=== PATIENT | female | born 2000 | race Two or more races ===

== ENCOUNTER 2019-07-25 00:56 | Emergency (ER) | payer OTHER ==
--- NOTE | 2019-07-25 01:33 | ER Document Report ---
ED Psych Disorder / Suicide - General Chief Complaint: Suicidal Ideation Stated Complaint: SUICIDAL ATTEMPT Time Seen by Provider: 07/25/19 01:00 Notes: 19-year-old female with no past medical history presents to the emergency department with suicidal ideation. Patient states that she wanted to cut herself but did not go through with it. Patient was not very forthcoming when asked how she ended up here. She states that her did call 911. Patient denies any homicidal ideations. Patient does not feel threatened by her . Patient states that this is never happened to her before. Patient is a difficult historian. Denies any headache, fever, head injury neck pain, changes in vision/speech/mentation/hearing, URI, sore throat, chest pain, palpitations, syncope, cough, shortness of breath, wheeze, dyspnea, abdominal pain, nausea/vomiting/diarrhea, urinary retention, dysuria, hematuria, loss of control of bladder or bowel, numbness/tingling/saddle anesthesia, muscle paralysis/weakness, or rash. Past Medical History - Social History Smoking Status: Unknown if Ever Smoked Family History: None Patient has suicidal ideation: Yes Patient has homicidal ideation: No Review of Systems - Review of Systems Constitutional: See HPI EENT: No symptoms reported Cardiovascular: See HPI Respiratory: See HPI Gastrointestinal: See HPI Genitourinary: See HPI Female Genitourinary: No symptoms reported Musculoskeletal: No symptoms reported Skin: No symptoms reported Hematologic/Lymphatic: No symptoms reported Neurological/Psychological: No symptoms reported Physical Exam - Vital signs Vitals: Temp 98.7 F 07/25/19 01:12 - Notes Notes: PHYSICAL EXAMINATION: Reviewed vital signs and charting by RN GENERAL: Alert, interacts well. No acute distress. HEAD: Normocephalic, atraumatic. EYES: Pupils equal and round. Extraocular movements intact. ENT: Oral mucosa moist, tongue midline. NECK: Full range of motion. Trachea midline. LUNGS: Clear to auscultation bilaterally, no wheezes, rales, or rhonchi. No respiratory distress. HEART: Regular rate and rhythm. No murmur ABDOMEN: soft, non-tender. No distention. Bowel sounds present EXTREMITIES: Moves all 4 extremities spontaneously. No edema, No cyanosis. PSYCH: Patient is alert and orientated to person, place, time and circumstance. Mood is depressed with congruent affect. Patient with suicidal ideation and without homicidal ideation. Delusions are absent and behaviors congruent with a n intact reality based presentation i.e. organized and linear thought process. Eye contact is poor. Conversational speech is slow. Intellectual abilities appear to be within the average range. Attention and concentration are 4. Insight, judgment, impulse control are historically poor SKIN: Warm, dry, normal turgor. No rashes or lesions noted. Course - Re-evaluation Re-evalutation: 07/25/19 04:12 Patient presents with an SI. She is very tearful and withdrawn when I spoke with her. She said that she was thinking about cutting herself and her called 911 and brought her in. She is very hesitant to talk with me and give history. Work-up has been completed and she is cleared for evaluation by psychiatric services. - Vital Signs Vital signs: Temp Pulse Resp BP Pulse Ox 98.7 F 84 18 142/71 H 98 07/25/19 01:15 07/25/19 01:15 07/25/19 01:15 07/25/19 01:15 07/25/19 01:15 - Laboratory Result Diagrams: 07/25/19 01:21 07/25/19 01:21 Laboratory results interpreted by me: 07/25/19 07/25/19 07/25/19 01:21 01:21 03:20 WBC 11.1 H MCH 26.6 L RDW 15.0 H Ur Leukocyte Esterase SMALL H Urine Ascorbic Acid 20 H Salicylates < 1.0 L Acetaminophen < 10 L Discharge - Discharge Clinical Impression: Suicidal ideation Condition: Stable Disposition: OTHER
[2019-07-25 02:20] LABS: ALBUMIN 4.9 g/dL (3.5-5.0); ALKALINE PHOSPHATASE 92 U/L (38-126); ANION GAP 11 (5-19); ASPARTATE AMINO TRANSFERASE 23 U/L (14-36); BILIRUBIN,TOTAL 0.5 mg/dL (0.2-1.3); BLOOD UREA NITROGEN 9 mg/dL (7-20); CALCIUM 9.5 mg/dL (8.4-10.2); CARBON DIOXIDE 22 mmol/L (22-30); CHLORIDE 105 mmol/L (98-107); GLUCOSE 102 mg/dL (75-110); POTASSIUM 4.1 mmol/L (3.6-5.0)
[2019-07-25 02:21] LABS: ABSOLUTE BASOPHILS # (AUTO) 0.1 10^3/uL (0.0-0.2); ABSOLUTE EOSINOPHILS # (AUTO) 0.6 10^3/uL (0.0-0.6); ABSOLUTE LYMPHOCYTES (AUTO) 2.9 10^3/uL (0.5-4.7); ABSOLUTE MONOCYTES (AUTO) 0.6 10^3/uL (0.1-1.4); ABSOLUTE NEUT (AUTO) 6.9 10^3/uL (1.7-8.2); BASOPHILS % (AUTO) 0.7 % (0-2); EOSINOPHILS % (AUTO) 5.8 % (0-6); HEMATOCRIT 39.7 % (36.0-47.0); HEMOGLOBIN 12.9 g/dL (12.0-15.5); LYMPHOCYTES % (AUTO) 25.8 % (13-45); MEAN CORPUSCULAR HEMOGLOBIN 26.6 pg (27.0-33.4); MEAN CORPUSCULAR HGB CONC 32.6 g/dL (32.0-36.0); MEAN CORPUSCULAR VOLUME 82 fl (80-97); MONOCYTES % (AUTO) 5.6 % (3-13); PLATELET COUNT 396 10^3/uL (150-450); RED BLOOD COUNT 4.87 10^6/uL (3.72-5.28); SEGMENTED NEUTROPHILS % (AUTO) 62.1 % (42-78); TOTAL CELLS COUNTED % (AUTO) 100 %; WHITE BLOOD COUNT 11.1 10^3/uL (4.0-10.5)
[2019-07-25 02:30] LABS: ACETAMINOPHEN < 10 ug/mL (10-30); ALCOHOL < 10 mg/dL (NONE DETECTED); SALICYLATE < 1.0 mg/dL (2.0-20.0)
[2019-07-25 03:28] LABS: APPEARANCE,URINE SLIGHTLY-CLOUDY; BILIRUBIN,URINE NEGATIVE (NEGATIVE); COLOR,URINE YELLOW; GLUCOSE, URINE NEGATIVE (NEGATIVE); KETONES,URINE NEGATIVE (NEGATIVE); LEUKOCYTE ESTERASE,URINE SMALL (NEGATIVE); NITRITE,URINE NEGATIVE (NEGATIVE); PROTEIN,URINE NEGATIVE (NEGATIVE); URINE SPECIFIC GRAVITY 1.012; UROBILINOGEN,URINE NEGATIVE mg/dL (<2.0)
[2019-07-25 03:42] LABS: URINE AMPHETAMINES SCREEN NEGATIVE; URINE BARBITURATES SCREEN NEGATIVE; URINE BENZODIAZEPINES SCREEN NEGATIVE; URINE COCAINE SCREEN NEGATIVE; URINE METHADONE SCREEN NEGATIVE; URINE PHENCYCLIDINE SCREEN NEGATIVE
[2019-07-25 03:43] LABS: URINE MARIJUANA (THC) SCREEN UNCONFIRMED POSITIVE
[2019-07-25] MEDS ORDERED: OLANZAPINE 2.5 MG TABLET PO ONE (12:12)
[2019-07-25] MEDS ORDERED: BUSPIRONE HCL 10 MG TABLET PO ONE (12:13)
--- NOTE | 2019-07-25 12:47 | PSYCHOLOGICAL NOTE ---
Psych Note - Psych Note Date seen by psych provider: 07/25/19 Time seen by psych provider: 11:25 Psych Note: Patient is a 19 year old female who presents to ED with concerns for suicidal ideation and history of NSSI. Patient reports "I wanted to hurt myself." Patient states she was having thoughts of suicide but no intent or desire. Patient reports a history of NSSI since high school when she was forced to move to another school and "had no fr iends." Patient reports she generally only engages in self harm behavior without intent to commit suicide when she is angry and frustrated. Patient reports she was not afforded the opportunity to cultivate emotional language, and uses maladaptive coping when she is distressed because she does not know how to discuss her feelings. Patient states she knows she needs help but has not "been motivated enough in the past" to establish mental health services. Patient denies the need for inpatient psychiatric services. Patient verbalized insight as to her pattern of maladaptive coping, need for mental health services, and why her contacted EMS. Patient denies history of mental health. Patient denies prior inpatient psychiatric hospitalizations. Patient reports a previous suicidal ideation earlier this year when she ingested an unknown quantity and dosage of Benadryl after an argument with her . Patient reported she did not take enough to require medical attention. Patient is agreeable to engage in mental health services. Patient denies any concerns that maladaptive coping has negatively impacted her occupational functioning. 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 Behavioral health team coordinated with with plan of care at discharge. reported no concerns for safety and wellbeing at discharge. agreed to be responsible for medication management and administration, remove access to items in the home that can be used for purposes of suicide, observe for signs of increased emotional distress, and facilitate appointment with a mental health provider on Saturday. was provided psychoeducation on healthy communication techniques. Patient was alert and oriented to person, place, circumstance, and situation. Mood was engaged and cooperative with somewhat flat affect, mood was congruent and with full expression. She denied current suicidal / homicidal ideation, intent or plan. She denied current auditory /visual hallucinations and there was no evidence of delusional thought content. Thought processes were linear, rational, and organized. Conversational speech was within normal limits for rate, tone, and prosody. Eye contact was well maintained. Intellectual abilities were estimated within the average range. Attention and concentration was good, and insight, judgment, and impulse control was fair. Medication recommendation by consulting psychiatrist: 1. Add Zyprexa 2.5MG, twice a day for mood regulation 2. Add Buspar 5MG, daily Diagnosis: 1. Depression Therapeutic Intervention: Clinician utilized CBT techniques to teach thought stopping and grounding (to include breathing) exercises; Patient was provided interactive psychoeducation worksheets on self care, emotion labeling, and how to communication emotions with the use of "I statements;" Focus on health, wellness and good nutrition. Impression / Plan: Patient is cleared from acute psychiatric services. Patient presents to ED via EMS with concerns for suicidal ideation. Patient has a history of maladaptive coping using NSSI. Patient reports thoughts of suicide without intent/desire to commit suicide. Patient verbalized a lack of emotional language to describe how she feels, which leads to emotions of anger and frustration. Patient has a strong support system in place with her . Patient engaged in future oriented planning. 1. Medication recommendations were provided to assist with mood regulation and anxiety. 2. Patient was provided CBT techniques for communication, grounding, and emotional literacy. 3. Patient was explained the outpatient mental health resource list. Clinician wrote the contact information for the [facility] on [address] on the resource list. 4. Collaborated with patient's regarding plan of care at discharge. 5. Patient was explained the interactive worksheets for self care, emotion labeling, and I statements. Dr. Linares was consulted on the care and management of this patient; attending physician is in agreement with recommendations and disposition.
[2019-07-25 13:40] VITALS: BP 114/64
--- NOTE | 2019-07-26 10:34 | EKG REPORT ---
SEVERITY:- NORMAL ECG - SINUS RHYTHM : Confirmed by: Siobhan Horton 26-Jul-2019 10:33:52
== END 2019-07-25 13:39 | disposition home or self-care (01) ==
LOC: ER 00:56
DX: R45.851 Suicidal ideations (principal)
CPT/HCPCS: 93005; 99285; 36415; 80307 ×4; 84703; 85025; 80053; 81001; 93010; J3490